=== PATIENT | female | born 1950 | race Caucasian/White ===

== ENCOUNTER 2017-05-11 07:44 | Day surgery (SDC) | payer MEDICARE ==
[~2017-05-11] VITALS: Ht 152.4 cm; Wt 81.4 kg
[~2017-05-11 07:44] MED LIST: CeFAZolin 2 GM/DEXTROSE 50 ML IV ONE; SODIUM CHLORIDE 0.9% 1,000 ML IV SCH
[2017-05-11] MEDS ORDERED: RINGERS SOLUTION,LACTATED 1,000 ML IV ONE ×3 (08:12→15:57)
[2017-05-11] MEDS ORDERED: CeFAZolin 2 GM/DEXTROSE 50 ML IV ONE (08:12)
[2017-05-11] MEDS ORDERED: OMEP20 PO (08:35)
[2017-05-11] MEDS ORDERED: ATOR20TA86 PO (08:35)
[2017-05-11] MEDS ORDERED: VORA2.082 PO (08:35)
[2017-05-11] MEDS ORDERED: METF500T4 PO (08:35)
[2017-05-11] MEDS ORDERED: LORA-703 PO (08:35)
[2017-05-11] MEDS ORDERED: COLE625 PO (08:35)
[2017-05-11] MEDS ORDERED: CLOP75 PO (08:35)
[2017-05-11] MEDS ORDERED: AMLO-511 PO (08:35)
[2017-05-11] MEDS ORDERED: ROSU10 PO (08:48)
[2017-05-11] MEDS ORDERED: FLUT16H NASAL (08:48)
[2017-05-11] MEDS ORDERED: PANT40TA25 PO (08:48)
[2017-05-11] MEDS ORDERED: VITAD1000 PO (08:48)
[2017-05-11] MEDS ORDERED: INSU3INS3 SQ (08:48)
[2017-05-11] MEDS ORDERED: DULA0.75 SQ (08:48)
[2017-05-11] MEDS ORDERED: TRAM-355 PO (08:48)
[2017-05-11] MEDS ORDERED: ESOM20CA31 PO (08:48)
[2017-05-11 10:28] LABS: GLUCOMETER DEV NAME(LOC) SDS 5; GLUCOSE,POINT OF CARE 137 MG/DL (70-110)
[2017-05-11] MEDS ORDERED: BUPIVACAINE HCL/PF 0.5% 30 ML VIAL ONE (10:55)
[2017-05-11] MEDS ORDERED: EPINEPHrine 1:1,000 [1 MG/ML] AMP ONE (10:56)
[2017-05-11] MEDS ORDERED: MEPERIDINE-PF 25 MG/ML SYRINGE IVP PRN (14:45)
[2017-05-11] MEDS ORDERED: FentaNYL CITRATE-PF 100 MCG/2 ML VIAL IVP PRN (14:45)
[2017-05-11] MEDS ORDERED: HYDROmorphone 2 MG/ML SYRINGE IVP PRN (14:45)
[2017-05-11] MEDS ORDERED: GUM MASTIC/STORAX/MSAL/ALCOHOL LIQUID 0.67 ML VIAL TP ONE (14:51)
[2017-05-11] MEDS ORDERED: HYDROmorphone 2 MG/ML SYRINGE ONE (15:58)
[2017-05-11] MEDS ORDERED: HYDROCODONE/ACETAMINOPHEN 5-325 MG TABLET PO ONE (17:00)
[2017-05-11] MEDS ORDERED: OXYGEN THERAPY IH SCH (20:00)
== END 2017-05-11 17:45 | disposition home or self-care (01) ==
LOC: SURGERY 07:44
PROVIDERS: ATTEND Orthopaedic Surgery
DX: M75.112 Incomplete rotator cuff tear or rupture of left shoulder, not specified as traumatic (principal); M19.012 Primary osteoarthritis, left shoulder; M65.812 Other synovitis and tenosynovitis, left shoulder; K21.9 Gastro-esophageal reflux disease without esophagitis; E11.9 Type 2 diabetes mellitus without complications; I10 Essential (primary) hypertension; Z90.49 Acquired absence of other specified parts of digestive tract; Z79.4 Long term (current) use of insulin; Z79.84 Long term (current) use of oral hypoglycemic drugs; Z79.899 Other long term (current) drug therapy; Z98.890 Other specified postprocedural states
CPT/HCPCS: 29824; 29827; 82962; 93005; C1713 ×2; J0171; J0690; J1170; J3490; J7120